=== PATIENT | male | born 1995 | race American Indian/Alaskan Native ===

== ENCOUNTER 2021-05-20 20:54 | Emergency (ER) | payer MEDICAID, SELFPAY ==
[2021-05-20 22:11] LABS: Hematocrit 44.2 % (35.5-45.6); Hemoglobin 14.9 gm/dl (11.8-15.2); Mean Corpuscular HGB Conc 34 % (32-34); Mean Corpuscular Volume 91 fl (84-94); Platelet Count 204 K/mm3 (140-440); Red Blood Count 4.88 M/mm3 (3.65-5.03); Red Cell Distribution Width 13.2 % (13.2-15.2)
[2021-05-20 22:32] LABS: BUN/Creatinine Ratio 16; Blood Urea Nitrogen 13 mg/dL (9-20); Calcium 9.1 mg/dL (8.4-10.2); Hemolysis Index 9
[2021-05-20 22:33] LABS: Amphetamine Screen,Urine PRESUMPTIVE NEGATIVE; Benzodiazepines Screen,Urine PRESUMPTIVE NEGATIVE; Cannabinoid Screen,Urine PRESUMPTIVE POSITIVE; Cocaine Screen,Urine PRESUMPTIVE NEGATIVE; Methadone Screen,Urine PRESUMPTIVE NEGATIVE; Opiate Screen,Urine PRESUMPTIVE NEGATIVE
--- NOTE | 2021-05-20 22:42 | Emergency Department Report ---
HPI - HPI HPI: 25-year-old male with history of asthma who is brought in 1013 by his social sciences professor for suicidal ideations. The patient states that he recently broke up with his girlfriend and since then has been extremely depressed. He says he has been trying to hurt himself by hitting himself in the face with pots and pans. Today he decided he was going to kill himself by jumping in front of a car but he spoke to his social sciences professor who talked him down and instead he called 911 for help. He denies ever losing consciousness from hitting himself. He denies attempting to hurt himself in any other way. He has no physical symptoms or complaints at this time. He does have a subconjunctival hemorrhage to his right eye but says his vision is completely normal. He denies visual or auditory hallucinations. He denies homicidal ideation. He denies any headache, focal weakness, sensory changes, chest pain, shortness of breath, vertigo, or any other complaints. He denies injury to any other part of his body. <JOAN PAN - Last Filed: 05/21/21 01:16> <CECILE WHATLEY - Last Filed: 05/21/21 13:43> - General Chief Complaint: Psych Time Seen by Provider: 05/20/21 22:18 ED Past Medical Hx - Past Medical History Previous Medical History?: Yes Hx Psychiatric Treatment: Yes ([facility]) Hx Asthma: Yes - Surgical History Past Surgical History?: No - Social History Smoking Status: Never Smoker Substance Use Type: Marijuana <JOAN PAN - Last Filed: 05/21/21 01:16> <CECILE WHATLEY - Last Filed: 05/21/21 13:43> - Medications Home Medications: Home Medications Medication Instructions Recorded Confirmed Last Taken Type Loratadine (Nf) [Claritin] 10 mg PO DAILY 08/06/14 05/21/21 Unknown History ED Review of Systems ROS: Stated complaint: SUICIDAL Other details as noted in HPI Constitutional: denies: chills, fever Eyes: denies: eye pain, vision change ENT: denies: throat pain, congestion Respiratory: denies: cough, shortness of breath Cardiovascular: denies: chest pain, palpitations Gastrointestinal: denies: abdominal pain, nausea, vomiting Genitourinary: denies: dysuria, frequency Musculoskeletal: denies: back pain, joint swelling Skin: denies: rash Neurological: denies: headache, weakness, numbness, paresthesias, abnormal gait, vertigo Psychiatric: depression, suicidal thoughts. denies: auditory hallucinations, visual hallucinations, homicidal thoughts Hematological/Lymphatic: denies: easy bleeding, easy bruising <JOAN PAN - Last Filed: 05/21/21 01:16> ROS: Stated complaint: SUICIDAL Other details as noted in HPI <CECILE WHATLEY - Last Filed: 05/21/21 13:43> Physical Exam - Physical Exam Vital Signs: Vital Signs 05/20/21 21:05 Temperature 97.9 F Pulse Rate 68 Respiratory 18 Rate Blood Pressure 148/76 Blood Pressure 148/76 [Left] O2 Sat by Pulse 99 Oximetry Physical Exam: GENERAL: Well developed and well nourished. No acute distress HEAD: Normocephalic. No obvious contusions, lacerations, or abrasions of the head. ENT: There is bruising noted to the bilateral face chest inferior to the orbits. There is no septal hematoma. No mora sign. moist mucous membranes. EYES: Extraocular movements are intact. Pupils are equal round and reactive to light bilaterally. There is a some conjunctival hemorrhage noted to the lateral aspect of the right eye. Vision is grossly normal. NECK: Supple. Full ROM is intact. Trachea is midline. LUNGS: Nonlabored breathing. Equal chest rise bilaterally. Clear to auscultation bilaterally. CARDIOVASCULAR: Regular rate and rhythm. No murmurs or rubs. VASCULAR: Cap refill < 2 seconds ABDOMEN: Abdomen is soft and nondistended. There is no significant tenderness, guarding or rebound. SKIN: Skin is warm and dry NEURO: Patient is awake, alert, and oriented. lunch truck driver II-XII grossly intact. No focal deficits. Normal motor and sensory exam throughout. Normal speech. MUSCULOSKELETAL: No obvious deformities. No significant tenderness. Normal ROM throughout. BACK/SPINE: No midline tenderness or step-offs of the C/T/L spine. <JOAN PAN - Last Filed: 05/21/21 01:16> - Physical Exam Vital Signs: Vital Signs 05/20/21 05/21/21 21:05 11:28 Temperature 97.9 F 97.9 F Pulse Rate 68 72 Respiratory 18 20 Rate Blood Pressure 148/76 Blood Pressure 148/76 136/68 [Left] O2 Sat by Pulse 99 100 Oximetry <CECILE WHATLEY - Last Filed: 05/21/21 13:43> ED Course Vital Signs 05/20/21 21:05 Temperature 97.9 F Pulse Rate 68 Respiratory 18 Rate Blood Pressure 148/76 Blood Pressure 148/76 [Left] O2 Sat by Pulse 99 Oximetry <JOAN PAN - Last Filed: 05/21/21 01:16> Vital Signs 05/20/21 05/21/21 21:05 11:28 Temperature 97.9 F 97.9 F Pulse Rate 68 72 Respiratory 18 20 Rate Blood Pressure 148/76 Blood Pressure 148/76 136/68 [Left] O2 Sat by Pulse 99 100 Oximetry - Reevaluation(s) Reevaluation #1: 05/21/21 13:42 Psychiatric Consult Note Patient Name: SANAZ NEGRETE Date of : [birth year] Patient Status: Emergency Emergency Provider: JOAN PAN Date: 05/21/21 12:34 Initialization Date: 05/21/21 12:34 History of Present Illness - Reason for Consult Consult date: 05/21/21 Reason for consult: suicidal Thoughts - History of Present Psychiatric Illness ED NOte: 25-year-old male with history of asthma who is brought in 1013 by his social sciences professor for suicidal ideations. The patient states that he recently broke up with his girlfriend and since then has been extremely depressed. He says he has been trying to hurt himself by hitting himself in the face with pots and pans. Today he decided he was going to kill himself by jumping in front of a car but he spoke to his social sciences professor who talked him down and instead he called 911 for help. He denies ever losing consciousness from hitting himself. He denies attempting to hurt himself in any other way. He has no physical symptoms or complaints at this time. He does have a subconjunctival hemorrhage to his right eye but says his vision is completely normal. He denies visual or auditory hallucinations. He denies homicidal ideation. He denies any headache, focal weakness, sensory changes, chest pain, shortness of breath, vertigo, or any other complaints. He denies injury to any other part of his body. Sanaz Negrete is a 25 year old male with a history of Paranoid schizophrenia and Bipolar with multiple psychiatric inpatient admissions who presents to the ED with suicidal thoughts. In my interview with the patient, he reports a recent brake up with his girl friend which he states resulted in him having increasing depressing suicidal thoughts. The patient reports non compliant with psychotropic medications " they slow me down." The patient denies any current suicidal thoughts and denies hallucinations. PAST PSYCHIATRIC HISTORY Diagnoses: Paranoid Schizophrenia, Bipolar Suicide attempts or Self-harm behavior: Denies Prior psychiatric hospitalizations: Yes Substance Abuse history: Denies Previous psychiatric medications tried: Risperidone, Seroquel Outpatient treatment: yes SOCIAL HISTORY Marital Status: Single Living Arrangements: Lives with mother Employment Status: employed Access to guns/weapons: Denied Education: some college History of Abuse: Denied Legal History: None reported REVIEW OF SYSTEMS Constitutional: Negative for weight loss ENT: Negative for stridor Respiratory: Negative for cough or hemoptysis All other systems reviewed and are negative MENTAL STATUS EXAMINATION General Appearance and Behavior: Age appropriate, dressed appropriately, calm and cooperative Cooperation: Participating Psychomotor Behavior: psychomotor normal Mood: calm Affect and affective range: Congruent with stated mood Thought Process: goal directed Thought Content: with normal limits Speech: Normal volume, Regular rate and rhythm, Intellectual Functioning: Average Suicidal Ideation: Denied Homicidal Ideation: Denied Hallucinations: Denied Delusions: None elicited Impulse Control: Unimpaired Insight and Judgment: Limited insight and judgment, Memory: Normal Attention: Undivided Orientation: Alert, oriented Assessment and Plan (1)Major Depressive Disorder Treatment plan Risks, benefits and alternatives of medications discussed with the patient, questions answered and consent obtained from patient. PSYCHOTHERAPY: Supportive psychotherapy provided MEDICAL: Per primary team DELIRIUM PRECAUTIONS: Please re-orient patient frequently, keep lights on during the day, and minimize benzodiazepines and opiates as these medications could worsen patient's confusion. DAIRY FEED MIXING OPERATOR: Per medical team DISPOSITION: Do not recommend acute inpatient psychiatric hospitalization at this time. Patient was informed that if suicidal/homicidal ideation/withdrawal symptoms arise, He should immediately seek for emergent assistance including but not limited to crisis hot line and emergency room. The natural resource technician to give the patient resources for a penitentiary, transportation pass, CBT, med management and alcohol rehab programs The patient to follow up with outpatient psych in 7 to 14 days upon discharge The patient to abstain from alcohol use FOLLOW-UP: Will sign off Thank you for the consult. Please contact with any questions and/or concerns. Case staffed with Dr. Patten <CECILE WHATLEY - Last Filed: 05/21/21 13:43> ED Medical Decision Making - Lab Data Result diagrams: 05/20/21 21:52 05/20/21 21:52 Lab Results 05/20/21 05/20/21 05/20/21 Range/Units 21:50 21:50 21:52 WBC (4.5-11.0) K/mm3 RBC (3.65-5.03) M/mm3 Hgb (11.8-15.2) gm/dl Hct (35.5-45.6) % MCV (84-94) fl MCH (28-32) pg MCHC (32-34) % RDW (13.2-15.2) % Plt Count (140-440) K/mm3 Add Manual Diff Total Counted Seg Neuts % (Manual) (40.0-70.0) % Lymphocytes % (Manual) (13.4-35.0) % Monocytes % (Manual) (0.0-7.3) % Eosinophils % (Manual) (0.0-4.3) % Basophils % (Manual) (0.0-1.8) % Nucleated RBC % Seg Neutrophils # Man (1.8-7.7) K/mm3 Band Neutrophils # K/mm3 Lymphocytes # (Manual) (1.2-5.4) K/mm3 Abs React Lymphs (Man) K/mm3 Monocytes # (Manual) (0.0-0.8) K/mm3 Eosinophils # (Manual) (0.0-0.4) K/mm3 Basophils # (Manual) (0.0-0.1) K/mm3 Metamyelocytes # K/mm3 Myelocytes # K/mm3 Promyelocytes # K/mm3 Blast Cells # K/mm3 WBC Morphology Hypersegmented Neuts Hyposegmented Neuts Hypogranular Neuts Smudge Cells Toxic Granulation Toxic Vacuolation Dohle Bodies Pelger-Huet Anomaly Beatrice Rods Platelet Estimate Clumped Platelets Plt Clumps, EDTA Large Platelets Giant Platelets Platelet Satelliting Plt Morphology Comment RBC Morphology Dimorphic RBCs Polychromasia Hypochromasia Poikilocytosis Anisocytosis Microcytosis Macrocytosis Spherocytes Pappenheimer Bodies Sickle Cells Target Cells Tear Drop Cells Ovalocytes Helmet Cells Olson-[place] Bodies [place] Rings [place] Cells Bite Cells Crenated Cell Elliptocytes Acanthocytes (Spur) Rouleaux Hemoglobin C Crystals Schistocytes Malaria parasites Aubrey Bodies Hem Pathologist Commnt Sodium (137-145) mmol/L Potassium (3.6-5.0) mmol/L Chloride (98-107) mmol/L Carbon Dioxide (22-30) mmol/L Anion Gap mmol/L BUN (9-20) mg/dL Creatinine (0.8-1.3) mg/dL Estimated GFR ml/min BUN/Creatinine Ratio % Glucose (75-100) mg/dL Calcium (8.4-10.2) mg/dL Urine Color Yellow (Yellow) Urine Turbidity Clear (Clear) Urine pH 6.0 (5.0-7.0) Ur Specific [place]field 1.026 (1.003-1.030) Urine Protein 30 mg/dl (Negative) mg/dL Urine Glucose (UA) Neg (Negative) mg/dL Urine Ketones 20 (Negative) mg/dL Urine Blood Neg (Negative) Urine Nitrite Neg (Negative) Urine Bilirubin Neg (Negative) Urine Urobilinogen 4.0 (<2.0) mg/dL Ur Leukocyte Esterase Neg (Negative) Urine WBC (Auto) 3.0 (0.0-6.0) /HPF Urine RBC (Auto) 1.0 (0.0-6.0) /HPF Urine Mucus 2+ /HPF Salicylates < 0.3 L (2.8-20.0) mg/dL Urine Opiates Screen Presumptive negative Urine Methadone Screen Presumptive negative Acetaminophen (10.0-30.0) ug/mL Ur Barbiturates Screen Presumptive negative Ur Phencyclidine Scrn Presumptive negative Ur Amphetamines Screen Presumptive negative U Benzodiazepines Scrn Presumptive negative Urine Cocaine Screen Presumptive negative U Marijuana (THC) Screen Presumptive positive Drugs of Abuse Note Disclamer Plasma/Serum Alcohol (0-0.07) % 05/20/21 05/20/21 05/20/21 Range/Units 21:52 21:52 21:52 WBC (4.5-11.0) K/mm3 RBC (3.65-5.03) M/mm3 Hgb (11.8-15.2) gm/dl Hct (35.5-45.6) % MCV (84-94) fl MCH (28-32) pg MCHC (32-34) % RDW (13.2-15.2) % Plt Count (140-440) K/mm3 Add Manual Diff Total Counted Seg Neuts % (Manual) (40.0-70.0) % Lymphocytes % (Manual) (13.4-35.0) % Monocytes % (Manual) (0.0-7.3) % Eosinophils % (Manual) (0.0-4.3) % Basophils % (Manual) (0.0-1.8) % Nucleated RBC % Seg Neutrophils # Man (1.8-7.7) K/mm3 Band Neutrophils # K/mm3 Lymphocytes # (Manual) (1.2-5.4) K/mm3 Abs React Lymphs (Man) K/mm3 Monocytes # (Manual) (0.0-0.8) K/mm3 Eosinophils # (Manual) (0.0-0.4) K/mm3 Basophils # (Manual) (0.0-0.1) K/mm3 Metamyelocytes # K/mm3 Myelocytes # K/mm3 Promyelocytes # K/mm3 Blast Cells # K/mm3 WBC Morphology Hypersegmented Neuts Hyposegmented Neuts Hypogranular Neuts Smudge Cells Toxic Granulation Toxic Vacuolation Dohle Bodies Pelger-Huet Anomaly Beatrice Rods Platelet Estimate Clumped Platelets Plt Clumps, EDTA Large Platelets Giant Platelets Platelet Satelliting Plt Morphology Comment RBC Morphology Dimorphic RBCs Polychromasia Hypochromasia Poikilocytosis Anisocytosis Microcytosis Macrocytosis Spherocytes Pappenheimer Bodies Sickle Cells Target Cells Tear Drop Cells Ovalocytes Helmet Cells Olson-[place] Bodies [place] Rings [place] Cells Bite Cells Crenated Cell Elliptocytes Acanthocytes (Spur) Rouleaux Hemoglobin C Crystals Schistocytes Malaria parasites Aubrey Bodies Hem Pathologist Commnt Sodium 141 (137-145) mmol/L Potassium 3.8 (3.6-5.0) mmol/L Chloride 103.6 (98-107) mmol/L Carbon Dioxide 25 (22-30) mmol/L Anion Gap 16 mmol/L BUN 13 (9-20) mg/dL Creatinine 0.8 (0.8-1.3) mg/dL Estimated GFR > 60 ml/min BUN/Creatinine Ratio 16 % Glucose 92 (75-100) mg/dL Calcium 9.1 (8.4-10.2) mg/dL Urine Color (Yellow) Urine Turbidity (Clear) Urine pH (5.0-7.0) Ur Specific Garfield (1.003-1.030) Urine Protein (Negative) mg/dL Urine Glucose (UA) (Negative) mg/dL Urine Ketones (Negative) mg/dL Urine Blood (Negative) Urine Nitrite (Negative) Urine Bilirubin (Negative) Urine Urobilinogen (<2.0) mg/dL Ur Leukocyte Esterase (Negative) Urine WBC (Auto) (0.0-6.0) /HPF Urine RBC (Auto) (0.0-6.0) /HPF Urine Mucus /HPF Salicylates (2.8-20.0) mg/dL Urine Opiates Screen Urine Methadone Screen Acetaminophen 5.0 L (10.0-30.0) ug/mL Ur Barbiturates Screen Ur Phencyclidine Scrn Ur Amphetamines Screen U Benzodiazepines Scrn Urine Cocaine Screen U Marijuana (THC) Screen Drugs of Abuse Note Plasma/Serum Alcohol < 0.01 (0-0.07) % 05/20/21 Range/Units 21:52 WBC 8.7 (4.5-11.0) K/mm3 RBC 4.88 (3.65-5.03) M/mm3 Hgb 14.9 (11.8-15.2) gm/dl Hct 44.2 (35.5-45.6) % MCV 91 (84-94) fl MCH 31 (28-32) pg MCHC 34 (32-34) % RDW 13.2 (13.2-15.2) % Plt Count 204 (140-440) K/mm3 Add Manual Diff Complete Total Counted 100 Seg Neuts % (Manual) 64.0 (40.0-70.0) % Lymphocytes % (Manual) 21.0 (13.4-35.0) % Monocytes % (Manual) 10.0 H (0.0-7.3) % Eosinophils % (Manual) 3.0 (0.0-4.3) % Basophils % (Manual) 2.0 H (0.0-1.8) % Nucleated RBC % Not Reportable Seg Neutrophils # Man 5.6 (1.8-7.7) K/mm3 Band Neutrophils # 0.0 K/mm3 Lymphocytes # (Manual) 1.8 (1.2-5.4) K/mm3 Abs React Lymphs (Man) 0.0 K/mm3 Monocytes # (Manual) 0.9 H (0.0-0.8) K/mm3 Eosinophils # (Manual) 0.3 (0.0-0.4) K/mm3 Basophils # (Manual) 0.2 H (0.0-0.1) K/mm3 Metamyelocytes # 0.0 K/mm3 Myelocytes # 0.0 K/mm3 Promyelocytes # 0.0 K/mm3 Blast Cells # 0.0 K/mm3 WBC Morphology Not Reportable Hypersegmented Neuts Not Reportable Hyposegmented Neuts Not Reportable Hypogranular Neuts Not Reportable Smudge Cells Not Reportable Toxic Granulation Not Reportable Toxic Vacuolation Not Reportable Dohle Bodies Not Reportable Pelger-Huet Anomaly Not Reportable Beatrice Rods Not Reportable Platelet Estimate Not Reportable Clumped Platelets Not Reportable Plt Clumps, EDTA Not Reportable Large Platelets Not Reportable Giant Platelets Not Reportable Platelet Satelliting Not Reportable Plt Morphology Comment Not Reportable RBC Morphology Normal Dimorphic RBCs Not Reportable Polychromasia Not Reportable Hypochromasia Not Reportable Poikilocytosis Not Reportable Anisocytosis Not Reportable Microcytosis Not Reportable Macrocytosis Not Reportable Spherocytes Not Reportable Pappenheimer Bodies Not Reportable Sickle Cells Not Reportable Target Cells Not Reportable Tear Drop Cells Not Reportable Ovalocytes Not Reportable Helmet Cells Not Reportable Olson-[place] Bodies Not Reportable [place] Rings Not Reportable [place] Cells Not Reportable Bite Cells Not Reportable Crenated Cell Not Reportable Elliptocytes Not Reportable Acanthocytes (Spur) Not Reportable Rouleaux Not Reportable Hemoglobin C Crystals Not Reportable Schistocytes Not Reportable Malaria parasites Not Reportable Aubrey Bodies Not Reportable Hem Pathologist Commnt No Sodium (137-145) mmol/L Potassium (3.6-5.0) mmol/L Chloride (98-107) mmol/L Carbon Dioxide (22-30) mmol/L Anion Gap mmol/L BUN (9-20) mg/dL Creatinine (0.8-1.3) mg/dL Estimated GFR ml/min BUN/Creatinine Ratio % Glucose (75-100) mg/dL Calcium (8.4-10.2) mg/dL Urine Color (Yellow) Urine Turbidity (Clear) Urine pH (5.0-7.0) Ur Specific [place]field (1.003-1.030) Urine Protein (Negative) mg/dL Urine Glucose (UA) (Negative) mg/dL Urine Ketones (Negative) mg/dL Urine Blood (Negative) Urine Nitrite (Negative) Urine Bilirubin (Negative) Urine Urobilinogen (<2.0) mg/dL Ur Leukocyte Esterase (Negative) Urine WBC (Auto) (0.0-6.0) /HPF Urine RBC (Auto) (0.0-6.0) /HPF Urine Mucus /HPF Salicylates (2.8-20.0) mg/dL Urine Opiates Screen Urine Methadone Screen Acetaminophen (10.0-30.0) ug/mL Ur Barbiturates Screen Ur Phencyclidine Scrn Ur Amphetamines Screen U Benzodiazepines Scrn Urine Cocaine Screen U Marijuana (THC) Screen Drugs of Abuse Note Plasma/Serum Alcohol (0-0.07) % - Medical Decision Making 25-year-old male with history of asthma brought in by EMS 1013 by his therapist due to suicidal ideations. Patient has also been hitting himself in the face with pots and pans. Patient said he was going to jump in front of a car today but was talked down by his social sciences professor and decided to call 911 for help. He is afebrile and with normal vital signs with the exception of elevated blood pressure. Physical examination reveals bilateral bruising inferior to the orbits as well as a subconjunctival hemorrhage to the right eye. There is no septal hematoma. There is no mora sign. He has moist mucous membranes. He has a nonfocal neurologic exam. There is no jaw malocclusion. He has no midline tenderness of the C/T/L-spine. 1013 order has been signed and initiated. Medical clearance labs have been sent. Given that the patient has obvious signs of trauma to the face and is an unreliable historian given that he is here for suicidal ideation, will obtain CT of the head to assess for intracranial hemorrhage and CT of the face to assess for facial fractures. Labs have resulted and reveal no significant leukocytosis or anemia. Creatinine is within normal range and there are no significant electrolyte abnormalities. CT of the head and face reveal no facial fractures or acute intracranial abnormalities. He is medically cleared for psychiatric evaluation and placem ent. <JOAN PAN - Last Filed: 05/21/21 01:16> - Lab Data Result diagrams: 05/20/21 21:52 05/20/21 21:52 - Medical Decision Making Patient was seen by mental health assessment team and staff with her psychiatrist Dr. Patten. Patient is no longer expressing any suicidal thoughts. States he was just upset because of a recent break-up with a girlfriend. Patient appears calm and cooperative today. 1013 was rescinded by our mental health assessment team and the patient is stable for discharge. Given outpatient resources. <CECILE WHATLEY - Last Filed: 05/21/21 13:43> Critical care attestation.: If time is entered above; I have spent that time in minutes in the direct care of this critically ill patient, excluding procedure time. <JOAN PAN - Last Filed: 05/21/21 01:16> Critical care attestation.: If time is entered above; I have spent that time in minutes in the direct care of this critically ill patient, excluding procedure time. <CECILE WHATLEY - Last Filed: 05/21/21 13:43> ED Disposition <MAXIMJOAN - Last Filed: 05/21/21 01:16> Is pt being admited?: No Does the pt Need Aspirin: No Time of Disposition: 13:43 <CECILE WHATLEY - Last Filed: 05/21/21 13:43> Clinical Impression: Suicidal ideation Disposition: DC-01 TO HOME OR SELFCARE Condition: Stable Instructions: Suicidal Feelings: How to Help Yourself, Persistent Depressive Disorder, Adult Additional Instructions: OUTPATIENT MENTAL HEALTH RESOURCES [facility], [facility] Mitali Tanvir W[place]LEY: [address] [place] [address] [place] [address] [facility]: [facility] [address] [place] [address] [place] [phone] [facility]: [facility]: [address] [facility] [place] [address] [facility] [id number] [facility]: Juan Jose Escobar MD: [id number] [facility] [address] [facility]: [address] [place] [address] [phone] [place] CRISIS AND ACCESS LINE: Professional and Agency Contacts To help Resolve Crises (21/05) [place] Crisis Line: Suicide Prevention Line: Crisis Text Line: Text START to 133103 Emergency: 911 Outpatient COMMUNITY Behavioral Health Resources: [place]: [facility] [address] [place], [place] [address] [facility] [address] [place] [address] Sunday thru Sunday - 8am - 5pm Call to schedule an assessment for mental health and substance abuse programs [facility] Address: [address] [place] [address] Sunday thru Sunday- 7am-2pm [facility] Address: [address] [place], [place] Sunday thru Sunday: 8:30AM-5PM Referrals: SALOME PACE MD [Primary Care Provider] - 3-5 Days
[2021-05-20 22:56] LABS: Bilirubin,Urine NEG (Negative); Blood,Urine NEG (Negative); Color,Urine Yellow (Yellow); Mucus,Urine 2+ /HPF
[2021-05-20 22:58] LABS: RBC Morphology Normal; Total Cells Counted 100
--- NOTE | 2021-05-21 00:52 | Cat Scan Report ---
CT facial bones wo con, CT head/brain wo con INDICATION: Psych Assessment / possible trauma to face.. TECHNIQUE: CT head and CT face. All CT scans at this location are performed using CT dose reduction f or ALARA by means of automated exposure control. COMPARISON: None. FINDINGS: Head: Intracranial: Johnson-white matter differentiation is maintained. No intracranial hemorrhage. No extra a xial collection.. No hydrocephalus. No herniation. Calvarium: No acute fracture. Face: Facial bones:Facial bones are intact without fracture. Mandibular condyles are well-seated within the glenoid fossa of the temporal mandibular joint. Sinuses: Paranasal sinuses and mastoid air cells are essentially clear. Orbits: Globes are intact. Additional findings:No other significant abnormality. IMPRESSION: 1. No acute intracranial abnormality. 2. No facial bone fracture. Signer Name: Pj Mederos MD Signed: 05/21/2021 12:47 AM Workstation Name: [id number]
[2021-05-21 11:29] VITALS: BP 136/68
--- NOTE | 2021-05-21 12:46 | Consultation ---
History of Present Illness - Reason for Consult Consult date: 05/21/21 Reason for consult: suicidal Thoughts - History of Present Psychiatric Illness ED NOte: 25-year-old male with history of asthma who is brought in 1013 by his social professionals for suicidal ideations. The patient states that he recently broke up with his girlfriend and since then has been extremely depressed. He says he has been trying to hurt himself by hitting himself in the face with pots and pans. Today he decided he was going to kill himself by jumping in front of a car but he spoke to his social professionals who talked him down and instead he called 911 for help. He denies ever losing consciousness from hitting himself. He denies attempting to hurt himself in any other way. He has no physical symptoms or complaints at this time. He does have a subconjunctival hemorrhage to his right eye but says his vision is completely normal. He denies visual or auditory hallucinations. He denies homicidal ideation. He denies any headache, focal weakness, sensory changes, chest pain, shortness of breath, vertigo, or any other complaints. He denies injury to any other part of his body. Ramírez Harris is a 25 year old male with a history of Paranoid schizophrenia and Bipolar with multiple psychiatric inpatient admissions who presents to the ED with suicidal thoughts. In my interview with the patient, he reports a recent brake up with his girl friend which he states resulted in him having increasing depressing suicidal thoughts. The patient reports non compliant with psychotropic medications " they slow me down." The patient denies any current suicidal thoughts and denies hallucinations. PAST PSYCHIATRIC HISTORY Diagnoses: Paranoid Schizophrenia, Bipolar Suicide attempts or Self-harm behavior: Denies Prior psychiatric hospitalizations: Yes Substance Abuse history: Denies Previous psychiatric medications tried: Risperidone, Seroquel Outpatient treatment: yes SOCIAL HISTORY Marital Status: Single Living Arrangements: Lives with mother Employment Status: employed Access to guns/weapons: Denied Education: some college History of Abuse: Denied Legal History: None reported REVIEW OF SYSTEMS Constitutional: Negative for weight loss ENT: Negative for stridor Respiratory: Negative for cough or hemoptysis All other systems reviewed and are negative MENTAL STATUS EXAMINATION General Appearance and Behavior: Age appropriate, dressed appropriately, calm and cooperative Cooperation: Participating Psychomotor Behavior: psychomotor normal Mood: calm Affect and affective range: Congruent with stated mood Thought Process: goal directed Thought Content: with normal limits Speech: Normal volume, Regular rate and rhythm, Intellectual Functioning: Average Suicidal Ideation: Denied Homicidal Ideation: Denied Hallucinations: Denied Delusions: None elicited Impulse Control: Unimpaired Insight and Judgment: Limited insight and judgment, Memory: Normal Attention: Undivided Orientation: Alert, oriented Assessment and Plan (1)Major Depressive Disorder Treatment plan Risks, benefits and alternatives of medications discussed with the patient, questions answered and consent obtained from patient. PSYCHOTHERAPY: Supportive psychotherapy provided MEDICAL: Per primary team DELIRIUM PRECAUTIONS: Please re-orient patient frequently, keep lights on during the day, and minimize benzodiazepines and opiates as these medications could worsen patient's confusion. FIRE PROTECTION EQUIPMENT TECHNICIAN: Per medical team DISPOSITION: Do not recommend acute inpatient psychiatric hospitalization at this time. Patient was informed that if suicidal/homicidal ideation/withdrawal symptoms arise, He should immediately seek for emergent assistance including but not limited to crisis hot line and emergency room. The personal trainer to give the patient resources for a jail, transportation pass, CBT, med management and alcohol rehab programs The patient to follow up with outpatient psych in 7 to 14 days upon discharge The patient to abstain from alcohol use FOLLOW-UP: Will sign off Thank you for the consult. Please contact with any questions and/or concerns. Case staffed with Dr. Patten Medications and Allergies Allergies Allergy/AdvReac Type Severity Reaction Status Date / Time No Known Allergies Allergy Verified 08/07/14 14:07 Home Medications Medication Instructions Recorded Confirmed Last Taken Type Loratadine (Nf) [Claritin] 10 mg PO DAILY 08/06/14 05/21/21 Unknown History Mental Status Exam - Vital signs Last Vital Signs Temp 97.9 F 05/21/21 11:28 Pulse 72 05/21/21 11:28 Resp 20 05/21/21 11:28 BP 136/68 05/21/21 11:28 Pulse Ox 100 05/21/21 11:28 Results Result Diagrams: 05/20/21 21:52 05/20/21 21:52 Abnormal lab results 05/20/21 05/20/21 05/20/21 Range/Units 21:52 21:52 21:52 Monocytes % (Manual) 10.0 H (0.0-7.3) % Basophils % (Manual) 2.0 H (0.0-1.8) % Monocytes # (Manual) 0.9 H (0.0-0.8) K/mm3 Basophils # (Manual) 0.2 H (0.0-0.1) K/mm3 Salicylates < 0.3 L (2.8-20.0) mg/dL Acetaminophen 5.0 L (10.0-30.0) ug/mL All other labs normal.
== END 2021-05-21 14:17 | disposition home or self-care (01) ==
LOC: ED 20:54
DX: R45.851 Suicidal ideations (principal); Z20.822 Contact with and (suspected) exposure to COVID-19; F20.9 Schizophrenia, unspecified; F31.9 Bipolar disorder, unspecified; Z79.899 Other long term (current) drug therapy
CPT/HCPCS: 36415; 70450; 70486; 80048; 80307; 81001; 85007; 85025; 99284; U0003; 80320; G0480